=== PATIENT | male | born 1990 | race Caucasian/White ===

== ENCOUNTER 2018-06-01 13:24 | Emergency (ER) | payer BC, SELFPAY ==
[2018-06-01] MEDS ORDERED: Ketorolac Tromethamine 60 MG/2 ML VIAL ONE (13:33)
[2018-06-01] MEDS ORDERED: Ondansetron PF 4 MG/2 ML Vial ONE (13:53)
--- NOTE | 2018-06-01 19:30 | RAD ---
RIGHT ANKLE THREE VIEWS: 06/01/17 No fracture, dislocation, or joint space abnormality was seen. The bones around the ankle all are nor mal in appearance. IMPRESSION: No acute findings. POS: HOME
== END 2018-06-01 14:13 | disposition home or self-care (01) ==
LOC: BURERS 13:24
DX: S93.401A Sprain of unspecified ligament of right ankle, initial encounter (principal); X50.9XXA Other and unspecified overexertion or strenuous movements or postures, initial encounter
CPT/HCPCS: 96372; J1885; J2405